=== PATIENT | female | born 1950 | race Caucasian/White ===

== ENCOUNTER → 2018-07-21 08:38 | Outpatient (CLI) | payer OTHER, SELFPAY ==
--- NOTE | 2018-07-21 | DI.CT.S_ITS ---
PROCEDURE: CT ABDOMEN PELVIS WO/W CON INDICATIONS: HEMATURIA TECHNIQUE: Optional 5 mm thick noncontrast images acquired from the diaphragm to the symphysis pubis. After the administration of intravenous contrast, 5 mm thick images acquired from the diaphragm to the symphysis pubis after a 10-minute delay. 2 mm thick coronal and sagittal reformats were then performed of the kidneys and ureters. For radiation dose reduction, the following was used: automated exposure control, adjustment of mA and/or kV according to patient size. COMPARISON: None. FINDINGS: Image quality: Excellent. Lung bases: Lung bases are clear. Heart size is normal. Scattered atherosclerotic calcifications of the coronary arteries are noted. Small hiatal hernia. Urinary system: Both kidneys are normal in size, without hydronephrosis or nephrolithiasis on pre-contrast images. No perinephric fat stranding. There is normal bilateral renal enhancement. Partially exophytic 2.1 cm right renal cyst. No solid mass lesions identified. Renal calyces appear normal in morphology when filled with contrast. Opacified portions of both ureters demonstrate normal caliber. Bladder wall thickness is normal. No calcified bladder stones. Other solid organs: Liver is normal in size and enhancement. Gallbladder is not visualized and may be surgically absent. Biliary system is non dilated. Pancreas enhances normally. Spleen is normal in size and enhancement. No adrenal nodules. Peritoneum and bowel: Scattered colonic diverticulosis without acute inflammation. Bowel loops demonstrate normal wall thickness and caliber. No free fluid or air. Nodes and vessels: No retroperitoneal or mesenteric adenopathy by size criteria. Aorta and inferior vena cava are normal in size. Abdominal wall: No ventral hernias. Pelvis: No pathologic free pelvic fluid. No pelvic adenopathy. Small left fat containing inguinal hernia. Bones: No suspicious bony lesions. No vertebral body compression fractures. IMPRESSION: 1. CT abdomen and pelvis without acute abnormalities. 2. No CT evidence for urolithiasis or obstructive uropathy. No abnormalities identified to explain patient's hematuria. 3. Colonic diverticulosis without acute diverticulitis. 4. Nonvisualization of the gallbladder, likely from prior cholecystectomy. Recommend correlation with past surgical history. Dictated by: Piero Wayne M.D. on 07/21/2018 at 13:40 Approved by: Piero Wayne M.D. on 07/21/2018 at 13:49
== END ==
PROVIDERS: Family Provider Family Medicine; PCP Family Medicine; Visit Provider Family Medicine
DX: R31.9 Hematuria, unspecified (principal); K57.90 Diverticulosis of intestine, part unspecified, without perforation or abscess without bleeding
CPT/HCPCS: 74178; Q9967

== ENCOUNTER → 2019-02-18 17:03 | Outpatient (CLI) | payer OTHER, SELFPAY | PROVIDERS: Family Provider Family Medicine; PCP Family Medicine; Visit Provider Student in an Organized Health Care Education/Training Program | DX: R22.42 Localized swelling, mass and lump, left lower limb (principal) ==

== ENCOUNTER 2019-02-18 17:08 | Emergency (ER) | payer OTHER, SELFPAY ==
[2019-02-18 17:11] VITALS: BP 131/77; PULSE 70; RESP 18; TEMP 36.6; O2SAT 97; BMI 41.9
--- NOTE | 2019-02-18 17:34 | DI.US.S_ITS ---
PROCEDURE: US PERIPH VENOUS LOW EXTREM LT INDICATIONS: LEFT REYSE LUMP; ELEVATED D-DIMER TECHNIQUE: Real-time imaging, as well as color and pulse Doppler interrogation, were performed of the lower extremity deep veins from the inguinal ligament to the popliteal fossa. COMPARISON: None. FINDINGS: The common femoral, femoral and popliteal veins are normally compressible, and free of intraluminal thrombus. Color and pulse Doppler demonstrate normal phasic intraluminal flow. There is normal augmentation response to distal compression maneuver. IMPRESSION: Negative for deep venous thrombosis of the left lower extremity. No sonographic abnormalities underlying area of palpable concern in the anterior/inferior lower leg. Dictated by: Piero Wayne M.D. on 02/18/2019 at 19:11 Approved by: Piero Wayne M.D. on 02/18/2019 at 19:12
--- NOTE | 2019-02-18 18:56 | PC.NURSE ---
pt has lump to left lower leg, lateral just above ankle. noticed it a couple months ago, pain increasing shane with ambulation.
--- NOTE | 2019-02-18 19:00 | ED_ITS ---
HPI - Extremity Injury (Lower) <Barbara Hamilton PA-C - Last Filed: 02/18/19 20:51> General Chief Complaint: Extremity Injury, Lower Stated Complaint: thinks blood clot left leg per her doctor and labs Time Seen by Provider: 02/18/19 17:32 Source: patient Mode of arrival: Ambulatory Limitations: no limitations History of Present Illness HPI Narrative: This 68-year-old female is sent by her PCP to rule out DVT. She states that she have to mention some left lateral lower leg swelling and tenderness, noted a bump there after she flew home from [place] in December, about a week later and has not resolved. She has not noted any generalized leg swelling, denies any calf pain. She states that she has chronic dyspnea and chest pain related to CAD and asthma, however these are stable without any new changes. She has not had any additional recent travel. She is a nonsmoker. She has not had any recent surgery or immobilization. She has no personal or family history of blood clots. Apparently a D-dimer was done in office and mildly elevated, she does not know what the reading was, nursing reports 330 range. Related Data Home Medications Medication Instructions Recorded Confirmed citalopram 10 mg PO QDAY #0 10/06/15 Previous Rx's Medication Instructions Recorded doxycycline hyclate 100 mg PO Q12H #20 cap 10/06/15 Allergies Allergy/AdvReac Type Severity Reaction Status Date / Time bee pollen [BEE POLLEN] Allergy Unknown Unverified 06/25/17 12:27 codeine [CODEINE] Allergy Unknown Unverified 06/25/17 12:27 isosorbide [ISOSORBIDE] Allergy Unknown Unverified 06/25/17 12:27 morphine [MORPHINE] Allergy Unknown Unverified 06/25/17 12:27 BEE,BUMBLE Allergy Severe ANAPHYLACTIC Uncoded 06/25/17 12:27 SHOCK Review of Systems <Barbara Hamilton PA-C - Last Filed: 02/18/19 20:51> Review of Systems ROS Unobtainable: All systems reviewed & are unremarkable except as noted in HPI and below Patient History <Barbara Hamilton PA-C - Last Filed: 02/18/19 20:51> Medical History (Updated 02/18/19 @ 19:30 by Barbara Hamilton PA-C) Asthma (Chronic) CAD (coronary artery disease) (Chronic) Hypothyroidism (Chronic) Surgical History (Updated 07/15/17 @ 06:04 by Braulio Gross MD) Status post appendectomy Status post cholecystectomy Status post laminectomy Status post surgery (09/13/13) Status post tonsillectomy and adenoidectomy Status post tubal ligation Social History Smoking Status: Never smoker Smoking Status: Never smoker Substance Use Type: does not use Exam <Barbara Hamilton PA-C - Last Filed: 02/18/19 20:51> Narrative Exam Narrative: GENERAL APPEARANCE: Patient sitting comfortably, in no distress. NECK/THYROID: Neck supple LUNGS: Clear to auscultation bilaterally. HEART: Regular rate and rhythm without murmur, normal S1, S2, no S3 or S4. EXTREMITIES: No cyanosis or edema. No calf tenderness. Pedal pulses are intact. On the left inferior lateral be border there is a mildly tender nodular area, no other areas of tenderness. NEUROLOGIC: Alert and oriented, normal speech and coordination. MUSCULOSKELETAL: Left knee and ankle full range of motion without tenderness Initial Vital Signs Initial Vital Signs: Vital Signs Temperature 98 F 02/18/19 17:11 Pulse Rate 70 02/18/19 17:11 Respiratory Rate 18 02/18/19 17:11 Blood Pressure 131/77 02/18/19 17:11 Pulse Oximetry 97 02/18/19 17:11 <Domo Suarez DO - Last Filed: 02/18/19 21:05> Initial Vital Signs Initial Vital Signs: Vital Signs Temperature 98 F 02/18/19 17:11 Pulse Rate 70 02/18/19 17:11 Respiratory Rate 18 02/18/19 17:11 Blood Pressure 131/77 02/18/19 17:11 Pulse Oximetry 97 02/18/19 17:11 Course <Barbara Hamilton PA-C - Last Filed: 02/18/19 20:51> Orders Ordered: ED Orders 02/18/19 17:34 US periph venous low extrem lt Stat Vital Signs Vital signs: Vital Signs - 8 hr 02/18/19 17:11 02/18/19 19:30 Temperature 98 F Pulse Rate 70 69 Respiratory Rate 18 15 Blood Pressure 131/77 128/70 Pulse Oximetry 97 98 <Domo Suarez DO - Last Filed: 02/18/19 21:05> Orders Ordered: ED Orders 02/18/19 17:34 US periph venous low extrem lt Stat Vital Signs Vital signs: Vital Signs - 8 hr 02/18/19 17:11 02/18/19 19:30 Temperature 98 F Pulse Rate 70 69 Respiratory Rate 18 15 Blood Pressure 131/77 128/70 Pulse Oximetry 97 98 MDM - Extremity Injury (Lower) <Barbara Hamilton PA-C - Last Filed: 02/18/19 20:51> Imaging Data Venous US: Radiologist's impression: [address] [id number] Ultrasound Report Signed Patient: Lynda Gutierrez MMR#: [id number] : 1950Acct:[id number] Age/Sex: 68 / FDate of Service: 02/18/19 Loc: ED Accession Number: [id number] Procedure: US periph venous low extrem lt Ordering Provider: Barbara Hamilton P.A-C PROCEDURE: US PERIPH VENOUS LOW EXTREM LT INDICATIONS: LEFT BE LUMP; ELEVATED D-DIMER TECHNIQUE: Real-time imaging, as well as color and pulse Doppler interrogation, were performed of the lower extremity deep veins from the inguinal ligament to the popliteal fossa. COMPARISON: None. FINDINGS: The common femoral, femoral and popliteal veins are normally compressible, and free of intraluminal thrombus. Color and pulse Doppler demonstrate normal phasic intraluminal flow. There is normal augmentation response to distal compression maneuver. IMPRESSION: Negative for deep venous thrombosis of the left lower extremity. No sonographic abnormalities underlying area of palpable concern in the anterior/inferior lower leg. Dictated by: Piero Wayne M.D. on 02/18/2019 at 19:11 Approved by: Piero Wayne M.D. on 02/18/2019 at 19:12 Discharge Plan Departure Patient Disposition: Home Clinical Impression: Contusion of left lower leg, initial encounter Discharge Date/Time: 02/18/19 19:30 Instructions: DI for Hematoma (Bruise) Activity Restrictions/Additional Instructions: There was no blood clot found on your ultrasound today, and the bump and pain on your leg are not typical for a blood clot. It was helpful to do this test since you had an elevated D-dimer at the office. I suspect that at some point during your travels you may have bumped the leg and caused a little hematoma. These can take quite a long time to resolve. This could also be an inflamed blood vessel. I think that is less likely based on your history and exam. As we talked about, you should return if you have any acute changes or worsening symptoms, otherwise follow up with your PCP as planned. Prescriptions: No Action citalopram 10 MG tablet 10 mg PO QDAY Qty: 0 RF: 0 doxycycline hyclate 100 MG capsule 100 mg PO Q12H Qty: 20 RF: 0 Referrals: Beti Chang MD [Physician] - <Doom Suarez, - Last Filed: 02/18/19 21:05> Sign Out Provider Sign Out Attestation: Dr Suarez Co-Sign Statement: I was available for consultation during this patient's emergency department visit. This chart is signed by myself for administrative purposes only. I did not have direct contact with this patient during this visit. They were seen independently by the APC.
[2019-02-18 19:30] VITALS: BP 128/70; PULSE 69; RESP 15; O2SAT 98
== END 2019-02-18 19:30 | disposition home or self-care (01) ==
PROVIDERS: Emergency Provider Internal Medicine; Family Provider Family Medicine; PCP Family Medicine
DX: S80.12XA Contusion of left lower leg, initial encounter (principal); R79.89 Other specified abnormal findings of blood chemistry; R22.42 Localized swelling, mass and lump, left lower limb
CPT/HCPCS: 85379; 93971; 99282; 99283

== ENCOUNTER → 2019-07-21 11:25 | Outpatient (CLI) | payer OTHER, SELFPAY ==
--- NOTE | 2019-07-21 | DI.RAD.S_ITS ---
PROCEDURE: XR HAND LT MIN 3V INDICATIONS: XR LT HAND PAIN AFTER FALL, R/O FRACTURE TECHNIQUE: 3 views of the hand(s) acquired. COMPARISON: None. FINDINGS: Bones: No fractures or dislocations. Carpal bones are normally aligned. No suspicious bony lesions. Diffuse interphalangeal spurring. First CMC and triscaphe joint degeneration, severe. Soft tissues: No suspicious soft tissue calcifications. IMPRESSION: No fracture. Extensive diffuse degenerative changes as above Dictated by: Dada Currie M.D. on 07/21/2019 at 12:53 Approved by: Dada Currie M.D. on 07/21/2019 at 12:56
== END ==
PROVIDERS: Family Provider Family Medicine; PCP Student in an Organized Health Care Education/Training Program; Referring Provider Student in an Organized Health Care Education/Training Program; Visit Provider Student in an Organized Health Care Education/Training Program
DX: M79.642 Pain in left hand (principal); M18.12 Unilateral primary osteoarthritis of first carpometacarpal joint, left hand
CPT/HCPCS: 73130

== ENCOUNTER 2020-10-11 14:01 | Emergency (ER) | payer OTHER, SELFPAY ==
[2020-10-11 14:40] VITALS: BP 137/63; PULSE 66; RESP 15; TEMP 36.4; O2SAT 98; BMI 42.9
--- NOTE | 2020-10-11 17:53 | PC.NURSE ---
Pt called from [facility] multiple times without answer.
== END 2020-10-11 17:52 | disposition left against medical advice (07) ==
PROVIDERS: Emergency Provider Emergency Medicine; PCP Student in an Organized Health Care Education/Training Program
CPT/HCPCS: 99281

== ENCOUNTER → 2020-10-16 09:48 | Outpatient (CLI) | payer OTHER, SELFPAY ==
--- NOTE | 2020-10-16 | DI.CT.S_ITS ---
PROCEDURE: CT HEAD/BRAIN WO CON INDICATIONS: Post-traumatic headache, unspecified, not intracta TECHNIQUE: Noncontrast 4.5 mm thick angled axial sections acquired from the foramen magnum to the vertex, with coronal and sagittal reformats. For radiation dose reduction, the following was used: automated exposure control, adjustment of mA and/or kV according to patient size. COMPARISON: None. FINDINGS: Image quality: Excellent. CSF spaces: Basal cisterns are patent. No extra-axial fluid collections. The ventricles are symmetric in size and shape. Brain: No intracranial bleeds or masses. There is cerebral volume loss for age, with resultant ventricular and sulcal prominence. There are periventricular and deep white matter chronic small vessel ischemic changes. There is intracranial internal carotid artery atherosclerosis. Skull and face: Calvarium and visualized facial bones appear intact, without suspicious lesions. Portions of the mandible can be seen and appear unremarkable, without fracture or dislocation. Sinuses: Visualized sinuses and mastoids are clear. IMPRESSION: No acute intracranial hemorrhage is seen. No acute intracranial process is seen. Note is made of age-appropriate brain parenchymal volume loss and chronic small vessel ischemic changes. Dictated by: Hay Valdvoinos M.D. on 10/16/2020 at 9:11 Approved by: Hay Valdovinos M.D. on 10/16/2020 at 9:12
== END ==
PROVIDERS: PCP Student in an Organized Health Care Education/Training Program; Referring Provider Student in an Organized Health Care Education/Training Program; Visit Provider Student in an Organized Health Care Education/Training Program
DX: G44.309 Post-traumatic headache, unspecified, not intractable (principal)
CPT/HCPCS: 70450

== ENCOUNTER → 2021-04-16 09:03 | Outpatient (CLI) | payer OTHER, SELFPAY ==
--- NOTE | 2021-04-16 | DI.US.S_ITS ---
PROCEDURE: US PELVIC COMPLETE INDICATIONS: POSTMENOPAUSAL BLEEDING TECHNIQUE: Real-time scanning was performed of the pelvic organs, with image documentation. Additional endovaginal scanning was necessary due to incomplete visualization of the adnexal and endometrial structures by transabdominal scanning. COMPARISON: [facility], , PELVIC COMPLETE, 08/04/2013, 10:31. FINDINGS: Uterus: Uterus is anteverted and normal in size at 8.3 x 5.2 x 3.8 cm. The myometrium demonstrates scattered calcifications. The endometrium measures 11.4 mm combined thickness. No focal uterine mass Ovaries: Not well seen. Other: No pathologic free abdominal or pelvic fluid. IMPRESSION: Thickening of the endometrium, possibly indicating hyperplasia or neoplasm. We strive to produce accurate, complete, and clear reports of imaging services. To assist us in improving patient care, this report was composed using standard report templates and voice recognition software. Therefore, it may contain abnormal punctuation, insertions and/or omissions. Occasional wrong-word or sound-alike substitutions may occur. Though we review the report and make efforts to correct it, we do recommend that the report be read carefully in proper context to recognize any text inaccuracies. Dictated by: Ezequiel العلي M.D. on 04/16/2021 at 11:03 Approved by: Ezequiel العلي M.D. on 04/16/2021 at 11:05
== END ==
PROVIDERS: PCP Student in an Organized Health Care Education/Training Program; Referring Provider Student in an Organized Health Care Education/Training Program; Visit Provider Student in an Organized Health Care Education/Training Program
DX: N95.0 Postmenopausal bleeding (principal); R93.89 Abnormal findings on diagnostic imaging of other specified body structures
CPT/HCPCS: 76830; 76856

== ENCOUNTER 2021-05-17 13:21 | Observation (INO) | payer OTHER, SELFPAY ==
[2021-05-17] VITALS (19 sets, daily range): BP systolic 139–166; BP diastolic 64–106; PULSE 55–77; RESP 13–38; TEMP 36.6; O2SAT 95–100; BMI 44.9
--- NOTE | 2021-05-17 | DI.NM.S_ITS ---
PROCEDURE: NM EXERCISE TREADMILL NON NUC COMPARISON: None. INDICATIONS: Chest pain r/o ACS FINDINGS: Rest ECG sinus rhythm, 66 bpm. Resting blood pressure 130/82. Enzo protocol 2:09, peak HR 115 bpm (77% peak predicted), stress BP 115/78, 4.6 METS, CHAGO +59%. Stress ECG sinus tachycardia, no ST segment changes, ectopy or arrhythmias. Patient described lightheadedness at peak heart rate and brief episode of chest tightness post exercise. IMPRESSION: Abnormal test. No evidence of exercise-induced ischemia or arrhythmia at submaximal heart rate. Abnormal decrease in blood pressure with exercise. Markedly reduced exercise capacity. Results discussed with Dr. Das. Dictated by: Telma Ugarte D.O. on 05/18/2021 at 13:10 Approved by: Telma Ugarte M.D. on 05/18/2021 at 13:19
--- NOTE | 2021-05-17 13:46 | ED.CHESTPAIN ---
HPI - Chest Pain General Chief Complaint: Chest Pain Stated Complaint: R/O Heart Attack, Sent from Religious Studies Professor Time Seen by Provider: 05/17/21 13:45 History of Present Illness HPI narrative: Patient is a 70-year-old female with history of coronary artery disease presenting today with chest discomfort. She says she has chest pain every day she wears a nitro patch, she is allergic to Imdur. Yesterday she had very intense pain. She was lifting groceries into the car she had severe left-sided chest pain left arm pain somewhat so she had to stop. His she did not want to come to the emergency at bedtime she took nitroglycerin then which did seem to help. She says she always gets chest discomfort while moving and lying down and resting resolved her pain and discomfort. She went to cardiology to day for appointment but was quickly instructed to go the emergency department for evaluation. Related Data Home Medications Medication Instructions Recorded Confirmed citalopram 10 mg tablet 10 mg PO QDAY #0 10/06/15 08/08/20 albuterol sulfate 90 mcg/actuation 2 puff INHALATION Q6H PRN 08/08/20 08/08/20 aerosol inhaler amlodipine 2.5 mg tablet 2.5 mg PO DAILY 08/08/20 08/08/20 aspirin 81 mg tablet,delayed 81 mg PO DAILY 08/08/20 08/08/20 release (Adult Aspirin Regimen) atorvastatin 10 mg tablet 10 mg PO DAILY 08/08/20 08/08/20 cetirizine 10 mg capsule (Zyrtec) 10 mg PO DAILY PRN 08/08/20 08/08/20 isometheptene 65 mg-caffeine 100 1 cap PO PRN cap 08/08/20 08/08/20 mg-acetaminophen 325 mg capsule levothyroxine 100 mcg tablet 100 mcg PO DAILY 08/08/20 08/08/20 (Synthroid) nitrofurantoin macrocrystal 50 mg 50 mg PO BEDTIME 08/08/20 08/08/20 capsule nitroglycerin 0.4 mg sublingual 0.4 mg SUBLINGUAL ONCE 08/08/20 08/08/20 tablet nitroglycerin 0.4 mg/hr 1 patch TRANSDERMAL DAILY 08/08/20 08/08/20 transdermal 24 hour patch omeprazole 20 mg capsule,delayed 20 mg PO DAILY 08/08/20 08/08/20 release pravastatin 20 mg tablet 20 mg PO DAILY 08/08/20 08/08/20 Allergies Allergy/AdvReac Type Severity Reaction Status Date / Time bee pollen [BEE POLLEN] Allergy Unknown Verified 10/11/20 14:40 codeine [CODEINE] Allergy Unknown Verified 10/11/20 14:40 isosorbide [ISOSORBIDE] Allergy Unknown Verified 10/11/20 14:40 morphine [MORPHINE] Allergy Unknown Verified 10/11/20 14:40 BEE,BUMBLE Allergy Severe ANAPHYLACTIC Uncoded 08/08/20 13:21 SHOCK Review of Systems Review of Systems Narrative: GENERAL: Denies chills, fatigue, malaise, fever, sweats, travel HEENT: Denies sinus pain, ear pain, sore throat, difficulty swallowing, neck pain RESPIRATORY: Denies dyspnea, cough, wheezing, hemoptysis, sputum. CARDIOVASCULAR: See HPI GASTROINTESTINAL: Denies nausea, vomiting, abdominal pain, diarrhea, constipation, melena. : Denies dysuria, frequency, incontinence, hematuria, urinary retention, flank pain. MUSCULOSKELETAL: Denies weakness, joint pain, or bony pain SKIN: No rash, no erythema, no pruritus NEUROLOGIC: Denies weakness, dizziness, headache, numbness, change in speech, confusion PSYCHIATRIC: No concerning psychosocial issues. 12 point review of systems is negative except for those stated above and HPI Patient History Medical History Arthritis Asthma CAD (coronary artery disease) Depression GERD (gastroesophageal reflux disease) Gout Hyperlipidemia Hypertension Hypothyroidism Surgical History Status post appendectomy Status post cholecystectomy Status post laminectomy Status post surgery (09/13/13) Status post tonsillectomy and adenoidectomy Status post tubal ligation Social History Smoking Status: Never smoker Smoking Status: Never smoker alcohol intake frequency: holidays/special occasions only Substance Use Type: does not use Exam Initial Vital Signs Initial Vital Signs: Vital Signs Pulse Rate 62 05/17/21 13:34 Respiratory Rate 18 05/17/21 13:34 Blood Pressure 146/68 H 05/17/21 13:34 GENERAL: Alert well-appearing 70-year-old female in no acute distress. HEENT: Head atraumatic,EOMI, pupils reactive, face symmetric, moist mucous membranes CARDIOVASCULAR: Regular rate and rhythm without murmurs, rubs or gallops. RESPIRATORY: Breath sounds equal bilaterally, no wheezes rales or rhonchi. ABDOMEN: Soft, nontender. Normoactive bowel sounds all 4 quadrants. No guarding or rebound. EXTREMITIES: Normal range of motion, no clubbing or edema. Neurovascularly intact NEUROLOGICAL: Alert and oriented x4.Normal gait and speech. SKIN: Warm, dry, no laceration, no petechiae, no rashes or lesions. Course Orders Ordered: ED Orders 05/17/21 13:40 BNP [NT-proBNP (BNP-Adult 18+)] Stat D Dimer Stat 05/17/21 13:47 XR chest 1V Stat Complete Blood Count AUTO DIFF Stat Comprehensive Metabolic Panel Stat Lipase Stat Troponin & CK Cardiac Panel Stat EKG-12 Lead Stat 05/17/21 15:38 CT angio chest PE protocol Stat 05/17/21 16:24 Trop I [Troponin I] Stat 05/17/21 18:30 COVID19 - ADMIT (VOLTAGE INSPECTOR swab/PCR) Stat 05/17/21 18:34 Education, smoking cessation ONGOING 05/18/21 06:00 Complete Blood Count AUTO DIFF DAILY Comprehensive Metabolic Panel DAILY Acetaminophen (Acetaminophen 325 Mg Tablet) 650 mg PO Q6HR JORI Albuterol (Albuterol 2.5 Mg/3 Ml Neb (Adult)) 2.5 mg INH Q6H PRN PRN Reason: Wheezing Amlodipine Besylate (Amlodipine 5 Mg Tablet) 2.5 mg PO BID JORI Bisacodyl (Bisacodyl 5 Mg Tablet) 10 mg PO DAILY PRN PRN Reason: Constipation Citalopram Hydrobromide (Citalopram 10 Mg Tablet) 10 mg PO DAILY [facility] Enoxaparin Sodium (Enoxaparin 40 Mg/0.4 Ml Syringe) 40 mg SUBCUT BID [facility] Levothyroxine Sodium (Levothyroxine 100 Mcg Tablet) 100 mcg PO 0600 [facility] Naloxone HCl (Naloxone 0.4 Mg/Ml Vial) 0.2 mg IV Q2MIN PRN PRN Reason: Opiate Reversal Nitroglycerin (Nitroglycerin 0.4 Mg Patch) 0.4 mg TOP 0700 [facility] Ondansetron HCl (Ondansetron 4 Mg Odt) 4 mg PO Q8HR PRN PRN Reason: Nausea And Vomiting Ondansetron HCl (Ondansetron 4 Mg/2 Ml Inj) 4 mg IV Q8HR PRN PRN Reason: Nausea And Vomiting Discontinued Medications Aspirin (Aspirin 325 Mg Tablet) 325 mg PO NOW ONE Stop: 05/17/21 14:04 Last Admin: 05/17/21 14:30 Dose: 325 mg Documented by: ATAYLOR Nitroglycerin (Nitroglycerin 0.4 Mg Sl Tab) 0.4 mg SL NOW ONE Stop: 05/17/21 19:37 Vital Signs Vital signs: Vital Signs - 8 hr 05/17/21 13:34 05/17/21 13:44 05/17/21 14:00 Temperature 97.8 F Pulse Rate 62 62 57 L Respiratory Rate 18 20 20 Blood Pressure 146/68 H 146/68 H Pulse Oximetry 99 99 05/17/21 14:01 05/17/21 14:30 05/17/21 14:31 Temperature Pulse Rate 59 L 57 L 64 Respiratory Rate 38 H 18 24 Blood Pressure 157/66 H 155/72 H Pulse Oximetry 99 98 99 05/17/21 15:00 05/17/21 15:01 05/17/21 15:30 Temperature Pulse Rate 55 L 57 L 60 Respiratory Rate 17 27 H 13 Blood Pressure 143/65 H 166/70 H Pulse Oximetry 95 95 98 05/17/21 16:00 05/17/21 16:30 05/17/21 17:00 Temperature Pulse Rate 62 61 58 L Respiratory Rate 17 23 20 Blood Pressure Pulse Oximetry 98 96 97 05/17/21 17:30 05/17/21 18:01 05/17/21 18:02 Temperature Pulse Rate 56 L 71 69 Respiratory Rate 16 16 16 Blood Pressure 139/106 H Pulse Oximetry 96 99 100 05/17/21 18:30 05/17/21 19:00 Temperature Pulse Rate 67 72 Respiratory Rate 23 22 Blood Pressure Pulse Oximetry 99 97 MDM - Chest Pain Lab Data Result diagrams: 05/17/21 13:47 05/17/21 13:47 Labs: Lab Results 05/17/21 05/17/21 05/17/21 Range/Units 13:40 13:40 13:47 WBC 7.3 (4.5-11.0) X10^3/uL RBC 4.69 (4.0-5.2) X10^6/uL Hgb 13.3 (12.0-16.0) g/dL Hct 39.8 (36-46) % MCV 84.9 (80-100) fL MCH 28.3 (26-34) PG MCHC 33.4 (30-36) % RDW 14.5 (11.6-14.8) % Plt Count 376 (150-400) X10^3/uL Neut % (Auto) 56.3 (50-75) % Lymph % (Auto) 34.5 (25-40) % [place] % (Auto) 5.9 (3-14) % Eos % (Auto) 1.9 L (2-4) % Baso % (Auto) 1.4 (0-2) % Neut # (Auto) 4100 (3092-3670) /uL Lymph # (Auto) 2500 (1531-7877) /uL [place] # (Auto) 400 (0-900) /uL Eos # (Auto) 100 (0-450) /uL Baso # (Auto) 100 (0-100) /uL D-Dimer 414 H (<230) ng/mL Sodium (137-145) mmol/L Potassium (3.4-5.1) mmol/L Chloride (98-107) mmol/L Carbon Dioxide (22-32) mmol/L BUN (7-17) mg/dL Creatinine (0.52-1.04) mg/dL Estimated GFR (>60) mL/min BUN/Creatinine Ratio (6-22) Glucose (80-110) mg/dL Calcium (8.4-10.2) mg/dL Total Bilirubin (0.2-1.3) mg/dL AST (14-36) IU/L ALT (<35) IU/L Alkaline Phosphatase (38-126) U/L Total Creatine Kinase (30-135) U/L CK-MB (CK-2) CK-MB (CK-2) Rel Index Troponin I (0.01-0.034) ng/mL NT-Pro-B Natriuret Pep 108 (<125) pg/mL Total Protein (6.3-8.2) g/dL Albumin (3.5-5.0) g/dL Globulin (1.7-4.1) g/dL Albumin/Globulin Ratio (1.0-2.8) Lipase (23-300) U/L SARS-CoV-2 (PCR) (Negative) 05/17/21 05/17/21 05/17/21 Range/Units 13:47 16:24 18:30 WBC (4.5-11.0) X10^3/uL RBC (4.0-5.2) X10^6/uL Hgb (12.0-16.0) g/dL Hct (36-46) % MCV (80-100) fL MCH (26-34) PG MCHC (30-36) % RDW (11.6-14.8) % Plt Count (150-400) X10^3/uL Neut % (Auto) (50-75) % Lymph % (Auto) (25-40) % [place] % (Auto) (3-14) % Eos % (Auto) (2-4) % Baso % (Auto) (0-2) % Neut # (Auto) (8415-7463) /uL Lymph # (Auto) (1837-0009) /uL [place] # (Auto) (0-900) /uL Eos # (Auto) (0-450) /uL Baso # (Auto) (0-100) /uL D-Dimer (<230) ng/mL Sodium 138 (137-145) mmol/L Potassium 4.2 (3.4-5.1) mmol/L Chloride 102 (98-107) mmol/L Carbon Dioxide 29 (22-32) mmol/L BUN 17 (7-17) mg/dL Creatinine 0.91 (0.52-1.04) mg/dL Estimated GFR > 60.0 (>60) mL/min BUN/Creatinine Ratio 18.7 (6-22) Glucose 104 (80-110) mg/dL Calcium 9.6 (8.4-10.2) mg/dL Total Bilirubin 0.6 (0.2-1.3) mg/dL AST 25 (14-36) IU/L ALT 11 (<35) IU/L Alkaline Phosphatase 103 (38-126) U/L Total Creatine Kinase 68 (30-135) U/L CK-MB (CK-2) TNP CK-MB (CK-2) Rel Index TNP Troponin I < 0.012 < 0.012 (0.01-0.034) ng/mL NT-Pro-B Natriuret Pep (<125) pg/mL Total Protein 7.8 (6.3-8.2) g/dL Albumin 4.4 (3.5-5.0) g/dL Globulin 3.4 (1.7-4.1) g/dL Albumin/Globulin Ratio 1.3 (1.0-2.8) Lipase 57 (23-300) U/L SARS-CoV-2 (PCR) Negative (Negative) Imaging Data CT scan - chest: Radiologist's Impression: PROCEDURE:? CT ANGIO CHEST PE PROTOCOL ? INDICATIONS:? high dimer sob with chest pain ? TECHNIQUE:? After the administration of intravenous contrast, 2 mm thick sections acquired from the pulmonary apices to the posterior costophrenic angles.? 3-dimensional maximum intensity projection (MIP) coronal and sagittal reformats were then acquired through the thorax.? For radiation dose reduction, the following was used:? automated exposure control, adjustment of mA and/or kV according to patient size.? ? COMPARISON:? None. ? FINDINGS:? Image quality:? Excellent.? ? Pulmonary arteries:? Pulmonary arteries are normal in size, and demonstrate no intraluminal filling defects to suggest central pulmonary embolism.? ? Lungs and pleura:? Hazy ground-glass opacities are seen scattered in bilateral lung ansari suggestive of pulmonary edema.? No focal infiltrate.? No pleural effusions or pneumothorax.? Central and peripheral airways are patent.? ? Mediastinum:? Heart size is enlarged, without pericardial effusion.? No mediastinal or hilar adenopathy.? Thoracic aorta is normal in caliber and enhancement.? Esophagus is normal in caliber, with a small hiatal hernia.? ? Bones and chest wall:? No suspicious bony lesions.? No vertebral body compression fracture.? Degenerative endplate changes throughout thoracic spine is seen.? Thyroid glandis is not visualized.? No axillary or supraclavicular adenopathy.? ? Abdomen:? Visualized upper abdominal solid organs appear normal in the early arterial phase of enhancement.? ? IMPRESSION:? 1. No evidence of pulmonary emboli.? No thoracic aortic aneurysm or dissection. 2. Cardiomegaly, no pericardial effusion.? No mediastinal or hilar lymphadenopathy. 3. Suggestion of pulmonary edema.? No focal infiltrate, pleural effusion or pneumothorax. 4. Small hiatal hernia. ? ? Dictated by: Montana Veloz M.D. on 05/17/2021 at 16:42 ? Chest x-ray: Radiologist's Impression: PROCEDURE:? XR CHEST 1V ? INDICATIONS:? chest pain ? TECHNIQUE:? One view of the chest was acquired.? ? COMPARISON:? [facility], , CHEST 2 VIEW, 07/09/2017, 16:05. ? FINDINGS:? ? Surgical changes and devices:? None.? ? Lungs and pleura:? Lungs are clear.? No pleural effusions or pneumothorax.? ? Mediastinum:? Mediastinal contours appear normal.? Heart size is enlarged. ? Bones and chest wall:? No suspicious bony lesions.? Overlying soft tissues appear unremarkable.? ? IMPRESSION:? No acute pulmonary process. ? ? Dictated by: Ladan Sanz M.D. on 05/17/2021 at 15:11 ? ? Approved by: Ladan Sanz M.D. on 05/17/2021 at 15 ECG Data Interpretation: Normal sinus rhythm rate 58 FL interval 198 QRS 94 QTC 416 T-wave inversion noted in lead 3 similar to previous EKG in 2016. MDM Narrative Medical decision making narrative: Patient had severe chest pain yesterday she has known coronary artery disease. No chest pain today 2- troponins no EKG changes. She does not have any sign of congestive heart failure BNP is negative. CT angio was done due to elevated D-dimer have shortness of breath. There is no pulmonary embolism. Patient remains asymptomatic here in the emergency department 17[address] Dr[address] Montes, [facility] is reviewing patient's chart. 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 She had a cardiac sore having all wound which he said was negative. At this time he recommended that patient have a stress test is if this stress test is positive he recommends a cardiac catheterization and transfer or if troponin becomes elevated he recommends transfer however at this time patient may stay here and have a stress [id number] Jones, updated patient symptoms test results cardiology recommendations and heavily accepts. Discharge Plan Departure Admit Date/Time: 05/17/21 19:11 Admit Provider: Augustin Jones
--- NOTE | 2021-05-17 13:47 | DI.RAD.S_ITS ---
PROCEDURE: XR CHEST 1V INDICATIONS: chest pain TECHNIQUE: One view of the chest was acquired. COMPARISON: [facility], , CHEST 2 VIEW, 07/09/2017, 16:05. FINDINGS: Surgical changes and devices: None. Lungs and pleura: Lungs are clear. No pleural effusions or pneumothorax. Mediastinum: Mediastinal contours appear normal. Heart size is enlarged. Bones and chest wall: No suspicious bony lesions. Overlying soft tissues appear unremarkable. IMPRESSION: No acute pulmonary process. Dictated by: Ladan Sanz M.D. on 05/17/2021 at 15:11 Approved by: Ladan Sanz M.D. on 05/17/2021 at 15:11
[2021-05-17 14:10] LABS: Add Manual Diff / Slide Review NO; Basophils Absolute Auto 100 /uL (0-100); Basophils Percent Auto 1.4 % (0-2); Eosinophils Absolute Auto 100 /uL (0-450); Eosinophils Percent Auto 1.9 % (2-4); Hematocrit 39.8 % (36-46); Hemoglobin 13.3 g/dL (12.0-16.0); Lymphocytes Absolute Auto 2500 /uL (1100-4500); Lymphocytes Percent Auto 34.5 % (25-40); Mean Corpuscular HGB Conc 33.4 % (30-36); Mean Corpuscular Hemoglobin 28.3 PG (26-34); Mean Corpuscular Volume 84.9 fL (80-100); Monocytes Absolute Auto 400 /uL (0-900); Monocytes Percent Auto 5.9 % (3-14); Neutrophils Absolute Auto 4100 /uL (1500-7000); Neutrophils Percent Auto 56.3 % (50-75); Platelet Count 376 X10^3/uL (150-400); Red Blood Cell Count 4.69 X10^6/uL (4.0-5.2); Red Cell Distribution Width 14.5 % (11.6-14.8); White Blood Cell Count 7.3 X10^3/uL (4.5-11.0)
[2021-05-17 14:16] LABS: Alanine Aminotransferase 11 IU/L (<35); Albumin 4.4 g/dL (3.5-5.0); Albumin Globulin Ratio 1.3 (1.0-2.8); Alkaline Phosphatase 103 U/L (38-126); Aspartate Aminotransferase 25 IU/L (14-36); BUN Creatinine Ratio 18.7 (6-22); Bilirubin Total 0.6 mg/dL (0.2-1.3); Blood Urea Nitrogen 17 mg/dL (7-17); Calcium 9.6 mg/dL (8.4-10.2); Carbon Dioxide 29 mmol/L (22-32); Chloride 102 mmol/L (98-107); Creatine Kinase 68 U/L (30-135); Estimated Glomerular Filt Rate > 60.0 mL/min (>60); Globulin 3.4 g/dL (1.7-4.1); Glucose 104 mg/dL (80-110); HEMOLYSIS < 15 (0-50); Lipase 57 U/L (23-300); Potassium 4.2 mmol/L (3.4-5.1); Sodium 138 mmol/L (137-145); Total Protein 7.8 g/dL (6.3-8.2)
[2021-05-17 14:27] LABS: Troponin I < 0.012 ng/mL (0.01-0.034)
[2021-05-17] MEDS: ASPIRIN 325 MG TABLET PO (14:30)
[2021-05-17 15:20] LABS: D Dimer 414 ng/mL (<230)
[2021-05-17 15:30] LABS: NT-proBNP (BNP-Adult 18+) 108 pg/mL (<125)
--- NOTE | 2021-05-17 15:38 | DI.CT.S_ITS ---
PROCEDURE: CT ANGIO CHEST PE PROTOCOL INDICATIONS: high dimer sob with chest pain TECHNIQUE: After the administration of intravenous contrast, 2 mm thick sections acquired from the pulmonary apices to the posterior costophrenic angles. 3-dimensional maximum intensity projection (MIP) coronal and sagittal reformats were then acquired through the thorax. For radiation dose reduction, the following was used: automated exposure control, adjustment of mA and/or kV according to patient size. COMPARISON: None. FINDINGS: Image quality: Excellent. Pulmonary arteries: Pulmonary arteries are normal in size, and demonstrate no intraluminal filling defects to suggest central pulmonary embolism. Lungs and pleura: Hazy ground-glass opacities are seen scattered in bilateral lung ansari suggestive of pulmonary edema. No focal infiltrate. No pleural effusions or pneumothorax. Central and peripheral airways are patent. Mediastinum: Heart size is enlarged, without pericardial effusion. No mediastinal or hilar adenopathy. Thoracic aorta is normal in caliber and enhancement. Esophagus is normal in caliber, with a small hiatal hernia. Bones and chest wall: No suspicious bony lesions. No vertebral body compression fracture. Degenerative endplate changes throughout thoracic spine is seen. Thyroid glandis is not visualized. No axillary or supraclavicular adenopathy. Abdomen: Visualized upper abdominal solid organs appear normal in the early arterial phase of enhancement. IMPRESSION: 1. No evidence of pulmonary emboli. No thoracic aortic aneurysm or dissection. 2. Cardiomegaly, no pericardial effusion. No mediastinal or hilar lymphadenopathy. 3. Suggestion of pulmonary edema. No focal infiltrate, pleural effusion or pneumothorax. 4. Small hiatal hernia. Dictated by: Montana Veloz M.D. on 05/17/2021 at 16:42 Approved by: Montana Veloz M.D. on 05/17/2021 at 16:45
[2021-05-17 17:09] LABS: Troponin I < 0.012 ng/mL (0.01-0.034)
--- NOTE | 2021-05-17 18:36 | PM.HP.1 ---
History of Present Illness History of Present Illness Date Patient Seen: 05/17/21 Time Patient Seen: 18:37 Chief complaint: R/O Heart Attack, Sent from Junior Accounting Clerk Narrative: PT with hx of Prinzmetals' with daily nitro patch at baseline presents to ED at behest of PCP and shot lighter to f/u on acute L arm /chest pain that struck while she was unloading bags from the car and took her breath away. She does endorse some shortness of breath throughout the day preceding which is unusual for her. She was able to sit down and take a nitro tab and the pain receded however due to its intensity and coincidence with physical activity she got help. On exam today she feels better, with initial cardiac workup nonrevealing. Junior Accounting Clerk consulted by ED recommended she go ahead and get a stress test prior to discharge given this story. She reports I get that kind of pain all the time every day at low intensity but this time it was REALLY bad. Lives alone on single story house has family here. A lot of stress lately she has been burying a lot of relatives from [place]. Reports very strong cardiac family history with heart attacks in both parents among others. Patient History Medical History Arthritis Asthma CAD (coronary artery disease) Depression GERD (gastroesophageal reflux disease) Gout Hyperlipidemia Hypertension Hypothyroidism Surgical History Status post appendectomy Status post cholecystectomy Status post laminectomy Status post surgery (09/13/13) Status post tonsillectomy and adenoidectomy Status post tubal ligation Family & Social History Safety & Behavioral: Feels Safe in Current Yes Environment Been Physically Hurt or No Threatened By a Person Tobacco & Substance use: Smoking Status Never smoker alcohol intake frequency holiday/special occasion Substance Use Type does not use Meds Home Medications and Allergies Home Medications Medication Instructions Recorded Confirmed Type citalopram 10 mg tablet 10 mg PO QDAY #0 10/06/15 08/08/20 History albuterol sulfate 90 mcg/actuation 2 puff INHALATION Q6H PRN 08/08/20 08/08/20 History aerosol inhaler amlodipine 2.5 mg tablet 2.5 mg PO DAILY 08/08/20 08/08/20 History aspirin 81 mg tablet,delayed 81 mg PO DAILY 08/08/20 08/08/20 History release (Adult Aspirin Regimen) atorvastatin 10 mg tablet 10 mg PO DAILY 08/08/20 08/08/20 History cetirizine 10 mg capsule (Zyrtec) 10 mg PO DAILY PRN 08/08/20 08/08/20 History isometheptene 65 mg-caffeine 100 1 cap PO PRN cap 08/08/20 08/08/20 History mg-acetaminophen 325 mg capsule levothyroxine 100 mcg tablet 100 mcg PO DAILY 08/08/20 08/08/20 History (Synthroid) nitrofurantoin macrocrystal 50 mg 50 mg PO BEDTIME 08/08/20 08/08/20 History capsule nitroglycerin 0.4 mg sublingual 0.4 mg SUBLINGUAL ONCE 08/08/20 08/08/20 History tablet nitroglycerin 0.4 mg/hr 1 patch TRANSDERMAL DAILY 08/08/20 08/08/20 History transdermal 24 hour patch omeprazole 20 mg capsule,delayed 20 mg PO DAILY 08/08/20 08/08/20 History release pravastatin 20 mg tablet 20 mg PO DAILY 08/08/20 08/08/20 History Allergies Allergy/AdvReac Type Severity Reaction Status Date / Time bee pollen [BEE POLLEN] Allergy Unknown Verified 10/11/20 14:40 codeine [CODEINE] Allergy Unknown Verified 10/11/20 14:40 isosorbide [ISOSORBIDE] Allergy Unknown Verified 10/11/20 14:40 morphine [MORPHINE] Allergy Unknown Verified 10/11/20 14:40 BEE,BUMBLE Allergy Severe ANAPHYLACTIC Uncoded 08/08/20 13:21 SHOCK Review of Systems Review of Systems Narrative: all systems reviewed and negative except as otherwise documented in HPI Exam Vital Signs (past 8 hours): - 05/17/21 13:34 05/17/21 13:44 05/17/21 14:00 Temperature 97.8 F Pulse Rate 62 62 57 L Respiratory Rate 18 20 20 Blood Pressure 146/68 H 146/68 H Pulse Oximetry 99 99 05/17/21 14:01 05/17/21 14:30 05/17/21 14:31 Temperature Pulse Rate 59 L 57 L 64 Respiratory Rate 38 H 18 24 Blood Pressure 157/66 H 155/72 H Pulse Oximetry 99 98 99 05/17/21 15:00 05/17/21 15:01 05/17/21 15:30 Temperature Pulse Rate 55 L 57 L 60 Respiratory Rate 17 27 H 13 Blood Pressure 143/65 H 166/70 H Pulse Oximetry 95 95 98 05/17/21 16:00 05/17/21 16:30 05/17/21 17:00 Temperature Pulse Rate 62 61 58 L Respiratory Rate 17 23 20 Blood Pressure Pulse Oximetry 98 96 97 05/17/21 17:30 05/17/21 18:01 Temperature Pulse Rate 56 L 71 Respiratory Rate 16 16 Blood Pressure Pulse Oximetry 96 99 Oxygen Delivery Method Room Air Narrative Exam Narrative: sitting on hospital bed talking to family on phone Const General: cooperative, healthy appearing and comfortable HENOH Head: normal to inspection, normocephalic and atraumatic Eyes General: appearance normal, both eyes and all related structures Alignment and Position: alignment normal Neck Neck: normal visual inspection, full ROM, trachea midline and supple Resp Other: clear to auscultation bilaterally Cardio Other: regular rate and rhythm S1/S2 GI Other: soft nontender normal bowel sounds Skin General: no rashes or lesions noted Neuro General: patient alert, patient awake, moves all extremities and CN's II-XI intact bilaterally Extrem General: normal to inspection, full ROM and no pedal edema Psych Appearance: grossly normal and well kempt Objective Labs Result Diagrams: 05/17/21 13:47 05/17/21 13:47 Labs: Laboratory Results - last 24 hr 05/17/21 05/17/21 05/17/21 13:40 13:40 13:47 WBC 7.3 RBC 4.69 Hgb 13.3 Hct 39.8 MCV 84.9 MCH 28.3 MCHC 33.4 RDW 14.5 Plt Count 376 Neut % (Auto) 56.3 Lymph % (Auto) 34.5 [place] % (Auto) 5.9 Eos % (Auto) 1.9 L Baso % (Auto) 1.4 Neut # (Auto) 4100 Lymph # (Auto) 2500 [place] # (Auto) 400 Eos # (Auto) 100 Baso # (Auto) 100 D-Dimer 414 H Sodium Potassium Chloride Carbon Dioxide BUN Creatinine Estimated GFR BUN/Creatinine Ratio Glucose Calcium Total Bilirubin AST ALT Alkaline Phosphatase Total Creatine Kinase CK-MB (CK-2) CK-MB (CK-2) Rel Index Troponin I NT-Pro-B Natriuret Pep 108 Total Protein Albumin Globulin Albumin/Globulin Ratio Lipase 05/17/21 05/17/21 13:47 16:24 WBC RBC Hgb Hct MCV MCH MCHC RDW Plt Count Neut % (Auto) Lymph % (Auto) [place] % (Auto) Eos % (Auto) Baso % (Auto) Neut # (Auto) Lymph # (Auto) [place] # (Auto) Eos # (Auto) Baso # (Auto) D-Dimer Sodium 138 Potassium 4.2 Chloride 102 Carbon Dioxide 29 BUN 17 Creatinine 0.91 Estimated GFR > 60.0 BUN/Creatinine Ratio 18.7 Glucose 104 Calcium 9.6 Total Bilirubin 0.6 AST 25 ALT 11 Alkaline Phosphatase 103 Total Creatine Kinase 68 CK-MB (CK-2) TNP CK-MB (CK-2) Rel Index TNP Troponin I < 0.012 < 0.012 NT-Pro-B Natriuret Pep Total Protein 7.8 Albumin 4.4 Globulin 3.4 Albumin/Globulin Ratio 1.3 Lipase 57 Assessment & Plan Assessment & Plan narrative: #chest pain rule out ACS workup unrevealing so far will get stress test in morning per cardio recs. phototypesetting equipment monitor, hearth healthy diet. #hx of prinzmetal angina continue altagracia and prn nitro #hypertension stable continue home amlodipine 2.5 bid with prn hydralazine #hypothyroid stable continue home levothyroxine 75 mcg #MDD stable mood is good today she is under a lot of stress it seems continue home citalopram code: full dvt: lovenox diet: heart healthy MDM: son PCP: Boyd Time Spent With Patient Critical Care time: I spent a total of [] minutes of critical care time on this patient's care today; this time is exclusive of procedural time.
[2021-05-17 19:49] LABS: COVID19 - ADMIT (NP swab/PCR) Negative (Negative)
[2021-05-17] MEDS: AMLODIPINE 5 MG TABLET 2.5 MG PO (22:27)
[2021-05-18 00:19] VITALS: BP 121/45; PULSE 62; RESP 17; TEMP 36.3; O2SAT 99
[2021-05-18 04:39] VITALS: BP 126/40; PULSE 70; RESP 18; TEMP 37.1; O2SAT 96
[2021-05-18 05:15] LABS: Add Manual Diff / Slide Review NO; Basophils Absolute Auto 0 /uL (0-100); Basophils Percent Auto 0.5 % (0-2); Eosinophils Absolute Auto 200 /uL (0-450); Eosinophils Percent Auto 2.4 % (2-4); Hematocrit 36.7 % (36-46); Hemoglobin 12.4 g/dL (12.0-16.0); Lymphocytes Absolute Auto 2200 /uL (1100-4500); Lymphocytes Percent Auto 26.9 % (25-40); Mean Corpuscular HGB Conc 33.7 % (30-36); Mean Corpuscular Hemoglobin 28.5 PG (26-34); Mean Corpuscular Volume 84.6 fL (80-100); Monocytes Absolute Auto 500 /uL (0-900); Monocytes Percent Auto 6.3 % (3-14); Neutrophils Absolute Auto 5300 /uL (1500-7000); Neutrophils Percent Auto 63.9 % (50-75); Platelet Count 344 X10^3/uL (150-400); Red Blood Cell Count 4.34 X10^6/uL (4.0-5.2); Red Cell Distribution Width 14.4 % (11.6-14.8); White Blood Cell Count 8.4 X10^3/uL (4.5-11.0)
[2021-05-18 05:21] LABS: Alanine Aminotransferase 11 IU/L (<35); Albumin 3.7 g/dL (3.5-5.0); Albumin Globulin Ratio 1.2 (1.0-2.8); Alkaline Phosphatase 80 U/L (38-126); Aspartate Aminotransferase 20 IU/L (14-36); BUN Creatinine Ratio 22.9 (6-22); Bilirubin Total 0.4 mg/dL (0.2-1.3); Blood Urea Nitrogen 19 mg/dL (7-17); Calcium 8.4 mg/dL (8.4-10.2); Carbon Dioxide 30 mmol/L (22-32); Chloride 103 mmol/L (98-107); Estimated Glomerular Filt Rate > 60.0 mL/min (>60); Glucose 104 mg/dL (80-110); HEMOLYSIS < 15 (0-50); Potassium 3.5 mmol/L (3.4-5.1); Sodium 138 mmol/L (137-145); Total Protein 6.7 g/dL (6.3-8.2)
[2021-05-18] MEDS: ACETAMINOPHEN 325 MG TABLET 650 MG PO ×2 (06:12→13:11)
[2021-05-18] MEDS: LEVOTHYROXINE 100 MCG TABLET PO (06:12)
[2021-05-18 08:03] VITALS: BP 108/35; PULSE 72
[2021-05-18 08:42] VITALS: BP 108/35; PULSE 70; RESP 18; TEMP 36.3; O2SAT 96
--- NOTE | 2021-05-18 10:22 | CM.DANOTE ---
DCP: Case received, EMR reviewed and met with patient. Introduced self and role. Was able to obtain information regarding patient's baseline activity level at home prior to hospitalization. DCP assessment completed with information currently available. Patient is a 70 year old female who admitted yesterday evening to the care of the hospitalist team. PCP: Dr. Chang. Payer: confirmed: [facility]. Patient came to the hospital via private vehicle secondary to having chest pain. According to notes, patient was unloading bags fro her car, and developed some shortness of breath, as well as some chest discomfort. Her used car make ready worker recommend that she come here for a cardiac work up. Patient has history of cardiac issues in her family. Patient holds diagnosis of chest pain rule out ACS. Met with patient in her room. She was laying in bed, alert and oriented. She resides in [place] with spouse, Darnell. She indicated that she is independent at her baseline. According to notes, patient has been under a lot of stress, family members passing of COVID. Patient is to be having a stress test today. P: DCP to continue to follow. Patient should be able to go home when she is deemed medically stable. Teri Perry RN/Processing Analyst Discharge Planning/Care Management CM Discharge Assessment Start: 05/18/21 10:20 Freq: Status: Active Protocol: Document 05/18/21 10:20 (Rec: 05/18/21 10:22 [id number]) Discharge Planning Assessment Assigned Dirt Supervisor Teri Perry RN/Processing Analyst Advance Directives? No History Provided By Medical Record Prior Living Arrangements House Household Members spouse Type of transporation used prior to Drives own vehicle admit Independent with ADL's Yes Is patient alert and oriented? Yes Caregiver for Another No Barriers to Discharge No Transportation Arrangement Spouse Whiteboard Updated in Patient Room with Yes name and ext. # of Dirt Supervisor Review Status In Process Next Review Type Continued Stay Review
[2021-05-18 12:00] VITALS: BP 128/59; PULSE 68; RESP 18; TEMP 36.2; O2SAT 97
--- NOTE | 2021-05-18 16:21 | PC.NURSE ---
Discharge: Pt feels ready to d/c to home. No c/p since admit. Did have some decreased bp, dizzyness, feeling lightheaded and Dr. Jones made aware. See new orders, amalodipine held today. Given info on how to check her bp at home, she is to bring a record of these when she sees Dr. Jones again. Stress test completed. Tele has been sr w/bbb. D/c packet reviewed. Questions answered. Pt d/c to home via auto w/spouse.
--- NOTE | 2021-05-18 16:30 | P.DS_ITS ---
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 She does endorse some shortness of breath throughout the day preceding which is unusual for her. She was able to sit down and take a nitro tab and the pain receded however due to its intensity and coincidence with physical activity she got help. On exam today she feels better, with initial cardiac workup nonrevealing and negative trended troponins. Software Quality Automation Engineer consulted by ED recommended she go ahead and get a stress test prior to discharge given this story. She reports I get that kind of pain all the time every day at low intensity but this time it was REALLY bad. Lives alone on single story house has family here. A lot of stress lately she has been burying a lot of relatives from [place]. Reports very strong cardiac family history with heart attacks in both parents among others. Stress test today did not reveal any signs of cardiac ischemia however she was not able to get up to target HR (just to 77%) due to feeling lightheaded and did have abnormal scan report due to light headedness with exercise. With no signs of ischemia thoughtt o be safe to discharge home for now with outpt f/u. Chest/arm pain did not recur this admission we did agree on dropping her already low amlodipine regimen as well as cutting her nitro patches in half for now on D/C. Status at Discharge Cognitive/behavioral status at discharge: oriented and at baseline, oriented Functional status at discharge: independent ambulation Overall status at discharge: patient is back to baseline Exam Vital Signs (past 8 hours): - 05/18/21 08:42 05/18/21 12:00 Temperature 97.3 F L 97.2 F L Pulse Rate 70 68 Respiratory Rate 18 18 Blood Pressure 108/35 L 128/59 L Pulse Oximetry 96 97 Oxygen Delivery Method Room Air Oxygen Flow Rate 0 Narrative Exam Narrative: sheerful lady laying in bed on phone with family Const General: cooperative, healthy appearing and comfortable [facility] Head: normal to inspection, normocephalic and atraumatic Eyes General: appearance normal, both eyes and all related structures Neck Neck: normal visual inspection, full ROM, trachea midline and supple Resp Effort & Inspection: normal respiratory effort Auscultation: clear to auscultation bilaterally Cardio Other: regular rate and rhythm S1/S2 GI Palpation: soft and No tender Percussion: normal to percussion Auscultation: normal bowel sounds Skin General: no rashes or lesions noted Neuro General: patient alert, patient awake, patient oriented x3, CN's II-XI intact bilaterally and deep tendon reflexes 2+ bilaterally Extrem General: normal to inspection and full ROM Psych Appearance: grossly normal and well kempt Objective Labs Result Diagrams: 05/18/21 04:45 05/18/21 04:45 Labs: Laboratory Results - last 24 hr 05/17/21 05/17/21 05/18/21 16:24 18:30 04:45 WBC 8.4 RBC 4.34 Hgb 12.4 Hct 36.7 MCV 84.6 MCH 28.5 MCHC 33.7 RDW 14.4 Plt Count 344 Neut % (Auto) 63.9 Lymph % (Auto) 26.9 [place] % (Auto) 6.3 Eos % (Auto) 2.4 Baso % (Auto) 0.5 Neut # (Auto) 5300 Lymph # (Auto) 2200 [place] # (Auto) 500 Eos # (Auto) 200 Baso # (Auto) 0 Sodium Potassium Chloride Carbon Dioxide BUN Creatinine Estimated GFR BUN/Creatinine Ratio Glucose Calcium Total Bilirubin AST ALT Alkaline Phosphatase Troponin I < 0.012 Total Protein Albumin Globulin Albumin/Globulin Ratio SARS-CoV-2 (PCR) Negative 05/18/21 04:45 WBC RBC Hgb Hct MCV MCH MCHC RDW Plt Count Neut % (Auto) Lymph % (Auto) [place] % (Auto) Eos % (Auto) Baso % (Auto) Neut # (Auto) Lymph # (Auto) [place] # (Auto) Eos # (Auto) Baso # (Auto) Sodium 138 Potassium 3.5 Chloride 103 Carbon Dioxide 30 BUN 19 H Creatinine 0.83 Estimated GFR > 60.0 BUN/Creatinine Ratio 22.9 H Glucose 104 Calcium 8.4 Total Bilirubin 0.4 AST 20 ALT 11 Alkaline Phosphatase 80 Troponin I Total Protein 6.7 Albumin 3.7 Globulin 3.0 Albumin/Globulin Ratio 1.2 SARS-CoV-2 (PCR) [facility] Medical History Arthritis Asthma CAD (coronary artery disease) Depression GERD (gastroesophageal reflux disease) Gout Hyperlipidemia Hypertension Hypothyroidism Surgical History Status post appendectomy Status post cholecystectomy Status post laminectomy Status post surgery (09/13/13) Status post tonsillectomy and adenoidectomy Status post tubal ligation Social History household members: spouse Smoking Status: Never smoker Discharge Assessment & Plan Assessment and Plan Assessment: #chest pain rule out ACS workup unrevealing stress test showed no ischemia she did get lightheaded on the treadmill stopped at 77% predicted effort. BP has been on the low side this admission so we stopped the amlodipine and reduced the dose on her nitro patch in case those were factors. will f/u as outpt #hx of prinzmetal angina continue 1/2 her usual patch altagracia and prn nitro will need to f/u with cardiology as outpt #hypertension stable hold home amlodipine 2.5 bid on dc have been holding it last couple admins #hypothyroid stable continue home levothyroxine 75 mcg #MDD stable mood is good today she is under a lot of stress it seems continue home citalopram Discharge Plan Discharge Plan Patient Disposition: Home Discharge orders & Medications Prescriptions: Continued citalopram 10 MG tablet 10 mg PO QDAY Qty: 0 0RF levothyroxine [Synthroid] 100 mcg tablet 100 mcg PO DAILY 0RF omeprazole 20 mg capsule,delayed release(DR/EC) 20 mg PO DAILY 0RF nitrofurantoin macrocrystal 50 mg capsule 50 mg PO BEDTIME 0RF Rx Instructions: must administer with a meal/food atorvastatin 10 mg tablet 10 mg PO DAILY 0RF aspirin [Adult Aspirin Regimen] 81 mg tablet,delayed release (DR/EC) 81 mg PO DAILY 0RF nitroglycerin 0.4 mg tablet, sublingual 0.4 mg sublingual ONCE 0RF Rx Instructions: as a single dose; administer 5-10 minutes before situation known to precipitate angina attack niscytanzokv-xij-omoactptpxcwl 65-100-325 mg capsule 1 cap PO PRN0RF albuterol sulfate 90 mcg/actuation HFA aerosol inhaler 2 puff inhalation Q6H PRN0RF Zyrtec 10 mg capsule 10 mg PO DAILY PRN0RF pravastatin 20 mg tablet 20 mg PO DAILY 0RF Changed nitroglycerin 0.4 mg/hr patch 24 hour 0.5 patch transdermal DAILY Qty: 0 0RF Rx Instructions: allow nitrate-free interval of approx. 10-12 hrs per 24-hour period Discontinued amlodipine 2.5 mg tablet 2.5 mg PO DAILY 0RF Follow up/Referrals: Beti Chang MD [Primary Care Provider] - Diet/Activity/Treatments Diet: Diet as Tolerated Activity: Check your blood pressure at home. If your blood pressure remains low and you are dizzy or lightheaded continue to hold your blood pressure medications and notify your doctor. See blood pressure testing information. Visit Report/Discharge Packet Instructions: Getting to the Heart of a Healthful Diet: Sodium, Blood Pressure Testing and Measurement, Heart-Healthy Diet, DI for Angina, DI for Cardiac Stress Test, Low-Sodium Diet Discharge Data Primary Care Provider: Beti Chang Attending Provider: Augustin Jones
== END 2021-05-18 16:15 | disposition home or self-care (01) ==
LOC: ED 13:45 → AC 19:11
PROVIDERS: Admitting Provider Family Medicine; Emergency Provider Emergency Medicine; PCP Student in an Organized Health Care Education/Training Program; Referring Provider Emergency Medicine; Visit Provider Family Medicine
DX: R07.9 Chest pain, unspecified (principal); I20.1 Angina pectoris with documented spasm; I10 Essential (primary) hypertension; E03.9 Hypothyroidism, unspecified; F32.9 Major depressive disorder, single episode, unspecified; Z20.822 Contact with and (suspected) exposure to COVID-19
CPT/HCPCS: 36415; 71045; 71275; 80053; 82550; 83690; 83880; 84484; 85025; 85379; 87635; 93005; 93017; 99284; 99285; C9803; G0378; Q9967

== ENCOUNTER → 2021-12-06 09:05 | Outpatient (CLI) | payer OTHER, SELFPAY ==
[2021-05-17 20:13] VITALS: BMI 44.9
[2021-12-06 09:41] LABS: COVID19 -Nasal RAPID Negative (Negative)
== END ==
PROVIDERS: PCP Family Medicine; Visit Provider Obstetrics & Gynecology
DX: Z01.812 Encounter for preprocedural laboratory examination (principal); Z20.822 Contact with and (suspected) exposure to COVID-19
CPT/HCPCS: 87635

== ENCOUNTER 2021-12-07 10:05 | Day surgery (SDC) | payer OTHER, SELFPAY ==
[2021-05-17 20:13] VITALS: BMI 44.9
[2021-12-05 12:13] VITALS: BMI 43.4
--- NOTE | 2021-12-07 | PATH_ITS ---
[facility] Accession Number: [id number] . 01 Material submitted: . PART A: endocervix - ENDOCERVICAL CURETTINGS PART B: endometrium - ENDOMETRIAL CURETTINGS . 01 Diagnosis: A. 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 Background with few strips of benign endocervical epithelium. . B. 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 See comment. . COMMENT: The immunohistochemical findings (no high level of p16 expression, positivity for ID and Vimentin) support an endometrial origin of the endometrioid adenocarcinoma. Clinical and radiographic definition is necessary. MRV 12/17/2021 1402 Local . 01 Comment: Dr. Curiel reviewed this case and concurs with the diagnosis. . 01 Electronically signed: . Indu Harper MD, Pathologist NPI- [id number] . 01 Gross description: . Part A: ENDOCERVICAL CURETTINGS: Received in formalin are minute fragments of mucoid and hemorrhagic material measuring 2.5 x 1.5 x 0.1 cm in aggregate. Submitted in toto in 1 cassette. Part B: ENDOMETRIAL CURETTINGS: Received in formalin are minute fragments of mucoid and hemorrhagic material measuring 2.8 x 2.5 x 0.3 cm in aggregate. Submitted in toto in 1 cassette. /CPE 12/11/2021 0507 Local . 01 Microscopic: . A panel of immunostains is obtained on blocks A1 and B1 in order to delineate the origin of the neoplastic glandular proliferation. The immunohistochemical findings are as follows: . In part A: P16: No high-level of expression. ER: Positive. ID: Variably positive. Vimentin: Positive. Monoclonal CEA: Variably positive. . In part B: P16: No high-level of expression. ER: Positive. ID: Variably positive. Vimentin: Non-reactive (technical limitations). Monoclonal CEA: Mostly negative. . * This test was developed and its performance characteristics determined by [facility]. It has not been cleared or approved by the U.S. Food and Drug Administration. The FDA has determined that such clearance or approval is not necessary. This test is used for clinical purposes. It should not be regarded as investigational or for research. . 01 Pathologist provided ICD-10: C54.1 . 01 CPT . 013307, 222362, X08799, G67461 Performed at: 01 [facility] [address] [place] [address], [place], [place] [id number] MD Maico Harvey MD Phone: [phone]
[2021-12-07 10:41] VITALS: BP 134/74; PULSE 77; RESP 18; TEMP 35.9; O2SAT 98; BMI 43.4
[2021-12-07] MEDS: LACTATED RINGERS 1,000 ML 42 ML IV (10:53)
--- NOTE | 2021-12-07 12:06 | PM.PREOP ---
Pre-operative Note COVID-19 COVID-19 status: Negative Result date/Date tested (Pos, Neg/Pending): 12/06/21 Criteria for continued procedure: Non-surgical alternatives not available or appropriate per current SOC Interval Note History & Physical reviewed/Exam performed by Physician: Yes Changes to H&P: No
--- NOTE | 2021-12-07 12:49 | SUR.OPER ---
Lithotomy on padded OR bed, head on pillow, arms secured on padded arm boards at <90 degrees abduction. Legs secured in padded yellow fins stirrups. Towels under bilateral wrists for support.
--- NOTE | 2021-12-07 13:06 | PM.GYNOP.1 ---
Operative Date/Time/Diagnoses Date of procedure: 12/07/21 Time of procedure: 12:25 Pre-op diagnosis: Post-menopausal bleeding Atypical endometrial hyperplasia Post-op diagnosis: same Procedure & Clinicians Procedure: Procedures Operation Date: 12/07/21 11:45 Actual Procedure Side Surgeon clarence Sanchez of the uterus Pardeep Olivas MD Indications: Lynda is a 71-year-old LMP at age 44 who presents for evaluation following her most recent episode of postmenopausal bleeding which started about 6 months ago.? The patient had an uneventful menopause at age 44 but developed her 1st episode of postmenopausal bleeding in 2013.? At that time she underwent hysteroscopy with polypectomy and dilation and curettage of the uterus on 09/13/2013.? The polyp showed focal complex endometrial hyperplasia without atypia which was also present on the endometrial curettings.? Endocervical curettings were unremarkable.? According to the patient, following her surgery she had 3 months of Depo-Provera injections but that was discontinued due to emotional side effects.? Following discontinuation of the Depo-Provera, she was essentially lost to follow-up until she returned in March 2021 to see her primary care provider (Beti Chang).? A pelvic US was performed in late March 2021 which showed: COMPARISON:? [facility], , PELVIC COMPLETE, 08/04/2013, 10:31. ? FINDINGS:? ?? Uterus:? Uterus is anteverted and normal in size at 8.3 x 5.2 x 3.8 cm. The myometrium demonstrates scattered calcifications. ? The endometrium measures 11.4 mm combined thickness.? No focal uterine mass ? Ovaries:? Not well seen. ? Other:? No pathologic free abdominal or pelvic fluid. ? ? IMPRESSION:? Thickening of the endometrium, possibly indicating hyperplasia or neoplasm.? Endometrial biopsy was delyed until late July 2021 due to non-[employer] AGENT health issues but the pathology report from the biopsy showed ?atypical epithelial lesion? and the specimen was forwarded to the [facility] for consultation.? Following review at [facility] the diagnosis was changed to ?atypical epithelial proliferation, favor low-grade endometrial neoplasm, and they feel that the findings favor at least endometrial intraepithelial neoplasia but cannot exclude micro glandular hyperplasia from the cervix and recommended additional sampling.? After consideration of all options, patient has opted to proceed with hysteroscopy with possible biopsies and fractional dilation and curettage of the uterus.? Patient presents today for her scheduled surgery. Surgeon: Pardeep Olivas Anesthesia Type: General Operative Notes Findings: Second degree cystocele and incomplete uterovaginal prolapse, second degree noted. Moderate ECC and abundant EMC obtained. Hysteroscopy not performed due to equipment malfunction. Closure Type: not applicable Specimen(s): endometrial curettings and other (Endocervical curettings) Estimated blood loss (mL): 15 Blood products transfused: none Procedure in detail: With the patient under satisfactory general anesthesia in the modified dorsal lithotomy position, the perineum, vagina, and lower abdomen were prepped and draped for hysteroscopy/dilation and curettage. A pre-surgical safety time-out was then taken in accordance with [facility] Main OR protocols. A bivalve speculum was then inserted in the vagina and the cervix easily visualized. The anterior lip of the cervix was then grasped with a single-tooth tenaculum and gradual dilation of the endocervical canal was accomplished with Hegar dilators. Unfortunately hysteroscopy could not be successfully performed due to lack of necessary equipment and instead fractional dilation and curettage was performed. A Kevorkian box curette was used to obtain the endocervical specimen followed by sharp curettage of the uterus which produced abundant amounts of endometrial curettings. The endocervical curetting and endometrial curettings were submitted as separate pathologic specimens. The tenaculum was then removed from the anterior lip of the cervix and there was no significant bleeding points from the tenaculum. The patient was then awakened from anesthesia and transferred to the PACU for a period of observation and recovery after having tolerated the procedure well. Complications: none Post-operative Condition: stable Disposition: PACU Plan for aftercare: Routine postoperative care with follow-up planned for 2 weeks postop. Patient be notified of pathology results as soon as they are available.
[2021-12-07 13:16] VITALS: BP 142/69; PULSE 77; RESP 20; O2SAT 93
[2021-12-07 13:19] VITALS: BP 138/70; PULSE 72; RESP 19; TEMP 36.6; O2SAT 93
[2021-12-07 13:21] VITALS: BP 157/71
[2021-12-07 13:25] VITALS: BP 163/71; PULSE 69; RESP 11; O2SAT 95
[2021-12-07 13:34] VITALS: BP 151/69; PULSE 66; RESP 15; TEMP 36.2; O2SAT 97
== END 2021-12-07 14:00 | disposition home or self-care (01) ==
PROVIDERS: PCP Family Medicine; Referring Provider Obstetrics & Gynecology; Visit Provider Obstetrics & Gynecology
PROC: 0UDB8ZZ Extraction of Endometrium, Via Natural or Artificial Opening Endoscopic (ICD-10-PCS; CPT 58558; principal; 2021-12-07 11:45)
DX: C54.1 Malignant neoplasm of endometrium (principal); E03.9 Hypothyroidism, unspecified; I10 Essential (primary) hypertension; K21.9 Gastro-esophageal reflux disease without esophagitis; J45.909 Unspecified asthma, uncomplicated; N81.2 Incomplete uterovaginal prolapse
CPT/HCPCS: 58120; J1100; J2250; J2405; J3010

== ENCOUNTER → 2024-08-02 15:31 | Outpatient (CLI) | payer OTHER, SELFPAY ==
[2021-05-17 20:13] VITALS: BMI 44.9
--- NOTE | 2024-08-02 15:34 | DI.RAD.S_ITS ---
PROCEDURE: XR CHEST 2V INDICATIONS: CHEST PAIN TECHNIQUE: 2 views of the chest were acquired. COMPARISON: [facility], CR, XR CHEST 1V, 05/17/2021, 14:16. FINDINGS: Surgical changes and devices: None. Lungs and pleura: Lungs are clear. No pleural effusions or pneumothorax. Mediastinum: Mediastinal contours are normal. Heart size is mildly prominent. Bones and chest wall: No suspicious bony abnormalities. Soft tissues appear unremarkable. IMPRESSION: No acute pulmonary process. Dictated by: Ladan Sanz M.D. on 08/02/2024 at 20:42 Approved by: Ladan Sanz M.D. on 08/02/2024 at 20:42
== END ==
LOC: RAD 15:32
PROVIDERS: PCP Family Medicine; Referring Provider Family Medicine; Visit Provider Family Medicine
DX: R07.2 Precordial pain (principal)
CPT/HCPCS: 71046